=== PATIENT | female | born 1955 | race Caucasian/White ===

== ENCOUNTER 2023-01-17 06:11 | Day surgery (SDC) | payer MEDICARE, OTHER, SELFPAY ==
[2023-01-17] VITALS (11 sets, daily range): BP systolic 121–141; BP diastolic 71–87; PULSE 50–96; RESP 14–16; TEMP 36.1–37.1; O2SAT 94–99; BMI 22.9
[2023-01-17] MEDS: LACTATED RINGERS 1000 ML 1,000 ML 100 ML IV (06:15)
[2023-01-17] MEDS: PIPERACILLIN/TAZOBACTAM 3.375 GM INJ IVPB (07:42)
[2023-01-17] MEDS: BUPIVACAINE 0.25% 30 ML INJECTION (08:40)
--- NOTE | 2023-01-17 08:51 | PM.GSPRC ---
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 Due to the location of the lesion resection was incomplete. Risks and benefits of excision in the operating room were discussed at length the patient. Risks included, but were not limited to: Bleeding, infection, risk of damage to surrounding structures, possible need for additional procedures, possible need to convert to an open operation and postoperative complications such as pneumonia, pulmonary emboli or CT. All questions and concerns were addressed with the patient agreeing to proceed. Procedure Description: After discussing the risks and benefits of the procedure, the patient signed informed consent.? The operative site was marked and the patient was brought to the operating room and placed on the operating table in supine position.? Care was taken to pad the patient's pressure points.?? The patient was then intubated by anesthesia.?? The operative site was then prepped and draped in the usual sterile fashion.? A time-out was then performed. Entrance to the abdomen was obtained via a 5 mm optical trocar in the left upper quadrant. The abdomen was insufflated and briefly surveyed for any signs of injury. There were none. A 12 mm port was placed lateral to the umbilicus as well as a 5 mm port in the left lower quadrant under direct vision. The patient was then placed in Trendelenburg position with the right side up. The small bowel was gently moved out of the way and the appendix was in view. The appendix was visualized and appeared normal. The lateral peritoneal attachments of the cecum were dissected free with the Harmonic device, taking care not to injure any underlying colon or bowel. The mesentery of the appendix was ligated with the Harmonic device. Once mobilization was complete a 60 mm bowel load stapler was used to transect the appendix and a small portion of the cecum. Care was taken not to impinge on the ileocecal valve. An additional 30 mm bowel load was required. The staple line was inspected. Two small pinpoint areas of bleeding were controlled with 5 mm clips. Hemostasis was excellent at the end of the procedure. The specimen was placed into Endo-Catch bag and sent fresh to be evaluated by pathology. Pathology confirmed that margins were grossly free. The 12 mm port site fascia was closed with 0 Vicryl. The skin was then closed with absorbable subcuticular suture. Sterile dressings were then applied. Instrument sponge and needle counts were correct at the end of the case. The patient was then woken and transported to the PACU in stable condition. Findings: Normal appearing appendix. Sessile serrated adenoma at the appendiceal base, margins free. Anesthesia: GETA Surgeon: Becca Garcia MD Estimated blood loss (mL): 5 Specimen: Appendix Condition: stable Disposition: PACU Date of procedure: 01/17/23
--- NOTE | 2023-01-17 08:58 | W.ANESCHARGE ---
Anesthesia Charges Start Date/Time Anesthesia Start Date: 01/17/23 Anesthesia Start Time: 07:34 Stop Date/Time Anesthesia Stop Date: 01/17/23 Anesthesia Stop Time: 08:54
[2023-01-17] MEDS: OXYCODONE 5 MG TABLET PO (10:49)
== END 2023-01-17 11:11 | disposition home or self-care (01) ==
PROVIDERS: PCP Family Medicine; Visit Provider Surgery
PROC: 0DTJ4ZZ Resection of Appendix, Percutaneous Endoscopic Approach (ICD-10-PCS; CPT 44970; principal; 2023-01-17 07:30)
DX: D12.1 Benign neoplasm of appendix (principal)
CPT/HCPCS: 44970; 00790; 88309; A9270; J0330; J0665; J1100; J2405; J2543; J2704; J2710; J3010; J3490; J7120